=== PATIENT | male | born 1980 | race Caucasian/White ===

== ENCOUNTER → 2017-03-24 | Outpatient (CLI) | payer OTHER ==
--- NOTE | ~2017-03-24 | EXE ---
[facility] [place] [address] STRESS ECHOCARDIOGRAM Name: HILLARY BAUMAN Room #: REG [facility]#: [id number] Admission: 03/24/17 Attend Phys: Baltazar Avalos Discharge: Date of : 84 Date of Service: 03/24/17 1022 Report #: [id number] THIS REPORT FOR: //name// APPROVED REPORT Exam: Stress Echocardiogram Indication: Chest pain Patient Location: Out-Patient Stress Nurse: Viola Welsh RN Status: routine Ht: 5 ft 10 in HR: 78 bpm BP: 133/81 mmHg Rhythm: NSR Medical History Allergies: No known drug allergies Echo Enhancing Agent Indication: Endocardial border delineation Agent(s) / Amount(s) Used: Optison 8 cc Stress Test Details Stress Test: Exercise stress testing was performed using a Zev protocol. HR Resting HR: 78 bpm Max Heart Rate (APMHR): 186 bpm Max HR Achieved: 176 bpm Target HR (85% APMHR): 158 bpm % of APMHR: 94 Recovery HR: 110 bpm HR response to stress: Normal HR response to stress BP Resting BP: 133/81 mmHg Max BP: 154/70 mmHg Recovery BP: 134/64 mmHg ECG Clinical Reason for Termination: Moderate fatigue Exercise duration: 12 min 15 sec Highest Stage Achieved: Stage 5: 5.0 mph at 18% grade. Exercise capacity: 14.50 METs [facility] [place] [address] STRESS ECHOCARDIOGRAM Name: HILLARY BAUMAN Room #: REG [facility]#: [id number] Admission: 03/24/17 Attend Phys: Baltazar Avalos Discharge: Date of : 84 Date of Service: 03/24/17 1022 Report #: [id number] Pre-Stress Echo The resting Echocardiogram showed normal left ventricular contractility with an estimated Ejection Fraction of about 55-60%. No significant valvular abnormalities noted. Post-Stress Echo The stress Echocardiogram showed normal left ventricular contractility with an estimated Ejection Fraction of about 65-70%. Normal augmentation of wall motion in all segments on post stress images. Conclusion 1. LOW RISK STUDY Other Information Study Quality: Adequate <Conclusion> 1. LOW RISK STUDY <ELECTRONICALLY SIGNED> By: Baltazar Mooney MD 03/24/17 1022 1022 102 Baltazar Mooney MD /INF
== END ==
LOC: CV 08:39
DX: Z87.898 Personal history of other specified conditions (principal)